=== PATIENT | male | born 1960 | race Caucasian/White ===

== ENCOUNTER 2024-09-27 18:32 | Emergency (ER) | payer OTHER, SELFPAY ==
[2024-09-27 18:38] VITALS: BP 186/84; PULSE 73; RESP 20; TEMP 36.4; O2SAT 98; BMI 22.5
--- NOTE | 2024-09-27 18:44 | ED_ITS ---
HPI - General Adult General Chief complaint: Psychiatric Symptoms Stated complaint: SI Crisis Time Seen by Provider: 09/27/24 19:48 Source: patient Limitations: no limitations History of Present Illness ED Provider: Clara Banda PA-C HPI narrative: Patient is a 63 year old male with complaints of worsening SI x3 weeks. Patient reports feeling anxious and depressed and was initially having plans of cutting his wrists, but for the last few days has been having thoughts of stabbing himself in the stomach. He lives alone and feels safe in his neighborhood, however states he was afraid of himself acting on his own thoughts. He cannot pinpoint any event that preceded these thoughts. He was on an SSRI for his depression in his 40s, but has not been on one since. He has not had a therapist for roughly 12 years, but has been in the process of trying to find one. Patient has a history of alcoholism and was sober until this past Friday when he relapsed. He has had the same partner x20 years who lives in [facility]. His family and friends live nearby and he feels well supported. Patient denies HI, hearing/seeing things that others do not, and history of present illness. Related Data Home Medications ?Medication ?Instructions ?Recorded ?Confirmed No Known Home Meds 09/27/24 09/27/24 Allergies Allergy/AdvReac Type Severity Reaction Status Date / Time No Known Allergies Allergy Verified 09/27/24 18:41 Review of Systems 2 Review of Systems: Yes all other systems are reviewed and are negative Constitutional: Constitutional: Denies chills, Denies fatigue, Denies fever(s), Denies headache(s), Denies weight gain and Denies weight loss Eyes: Eyes: Denies change in vision, Denies irritation and Denies other visual disturbances ENT: Denies dizziness, Denies headache(s) and Denies mouth lesions Cardiovascular: Cardiovascular: Denies Abdominal Distension, Denies chest pain, Denies pedal edema, Denies leg edema, Denies lightheadedness, Denies palpitations and Denies dyspnea Respiratory: Respiratory: Denies cough, Denies dyspnea and Denies wheezing Gastrointestinal: Gastrointestinal: Denies abdominal pain, Denies bloating, Denies constipation, Denies diarrhea, Denies nausea and Denies vomiting Genitourinary: Genitourinary: Denies hematuria, Denies oliguria, Denies urinary frequency and Denies urinary urgency Musculoskeletal: Musculoskeletal: Denies arthralgias, Denies joint swelling, Denies numbness, Denies stiffness and Denies tingling Integumentary/Breasts: Skin/Breast: Denies lesions and Denies rash Neurologic: Denies behavioral changes, Denies confusion, Denies dizziness, Denies headache(s), Denies numbness and Denies tingling Psychiatric: Psychiatric: Reports anxiety, Denies behavioral changes, Denies confusion, Reports depression, Denies panic attacks, Denies visual hallucinations, Denies hallucinations, Denies homicidal ideation and Reports suicidal ideation Endocrine: Endocrine: Denies fatigue and Denies palpitations Allergic/Immunologic: Allergic/Immunologic: Denies wheezing PMFSH Past Medical History Attestation statement: The following information was validated with the patient. Social History Social History Advance Directives: No Advance Directives Information Provided: No Physical Exam ED Vital Signs: Vital Signs - 24 hr 09/27/24 18:38 09/28/24 06:28 Temperature 97.6 F Pulse Rate 73 Respiratory Rate 20 16 Blood Pressure 186/84 H Pulse Oximetry 98 Oxygen Delivery Method Room Air BMI result Body Mass Index 22.5 Const General: cooperative, healthy appearing, comfortable, no acute distress and well developed; No in distress, anxious, confusion, diaphoretic, ill appearing or lethargic Nutritional Appearance: average body habitus Orientation/consciousness: patient oriented x3, No confusion and No lethargic Limitations: no limitations [facility] Head: Yes normal to inspection, Yes normocephalic and Yes atraumatic Eyes General: appearance normal, both eyes and all related structures Visual [place]: normal visual [place] by confrontation Alignment and Position: alignment normal Periorbital: periorbital findings normal Eyelids: Yes eyelids normal Conjunctivae: conjunctivae normal Sclerae: sclerae normal Corneas: corneas normal Pupils: Equal, round and reactive pupils present EOM: EOMs intact bilaterally Neck Neck: Yes normal visual inspection, Yes full ROM and Yes no meningeal signs Resp Effort & Inspection: normal respiratory effort, able to speak in complete sentences, no audible wheezes, no cough, not labored, no nasal flaring, no respiratory distress and no use of accessory muscles Cardio Jugular venous distension: no JVD Rate: regular rate Rhythm: regular rhythm Heart sounds: S1 normal heart sound present and S2 normal heart sound present GI Inspection: Yes normal to inspection and No distended Skin Other: warm and dry, no rash Neuro General: patient oriented x3, gait normal, moves all extremities, no meningeal signs, no focal motor deficits, CN's II-XI intact bilaterally and No confusion Cranial nerves: Yes CN's II-XII intact bilaterally, Yes Equal, round and reactive pupils present, Yes Bilaterally intact EOM present and Yes Nystagmus not present Cognition (Neuro): normal cognition Gait exam (Neuro): Normal gait present Extrem General: Yes normal to inspection and Yes full ROM Psych Other: calm and cooperative Appearance: grossly normal Mental Status: mental status grossly normal Speech and movement: Normal speech and movement present and Clear speech present; No Slurred speech present Affect: normal affect Attitude: cooperative Thought process: Normal thought process present Thought content: Normal thought content present, Suicidality present, no homicidality, no delusions, no hallucinations and Depressive thoughts present Insight: Good insight present (Psych) Judgement: Good judgement present (Psych) Course Course Course Narrative: RME: 63 yold male presents to the ED for relapsing on alcohol and now states SI and plan to cut himself. labs and team conuslt placed. labs and care team and consul placed Medical Decision Making Medical Decision Making MDM Narrative: I Clara Banda PA-C have personally assessed and manage the patient, Liz RÍOS observed and helped to formulate the documentation Patient is a 63 year old male with complaints of worsening SI x3 weeks. Patient reports feeling anxious and depressed and was initially having plans of cutting his wrists, but for the last few days has been having thoughts of stabbing himself in the stomach. He lives alone and feels safe in his neighborhood, however states he was afraid of himself acting on his own thoughts. He cannot pinpoint any event that preceded these thoughts. He was on an SSRI for his depression in his 40s, but has not been on one since. He has not had a therapist for roughly 12 years, but has been in the process of trying to find one. Patient has a history of alcoholism and was sober until this past Friday when he relapsed. He has had the same partner x20 years who lives in [facility]. His family and friends live nearby and he feels well supported. Patient denies HI, hearing/seeing things that others do not, and history of present illness. Patient has a PMH of depression and alcohol abuse. He does not take any medications currently. DDx: SI, HI, EtOH/drug use, decompensated psychiatric illness Plan: As patient is having SI with a plan, as well as recent increase in anxiety and depression, it is possible he is suffering from decompensated psychiatric illness. He has a history of depression which has recently worsened, and he has been untreated for a few years. As he denies thoughts of harming others, he does not have HI. Patient did relapse on alcohol this past Friday, however he denies drug use. He also does not have any symptoms of EtOH or drug withdrawal, such as diaphoresis, tremors, or seizures. Per Clara Banda PA-C Given alcohol abuse history, we will place ciwa scale. We will be ordering screening labs including serum ethanol and U tox, the patient will be referred to the care team. I have independently reviewed the following tests: Labs: No leukocytosis, not anemic, no electrolyte abnormality, ethanol negative, U tox negative Lab Data 09/27/24 18:54 09/27/24 18:54 Labs: Lab Results 09/27/24 09/27/24 Range/Units 18:54 21:42 WBC 9.9 (4.8-10.8) X10*3/uL RBC 3.96 L (4.60-5.80) X10*6/uL Hgb 14.6 (14.0-18.0) g/dl Hct 40.3 L (42.0-52.0) % MCV 101.8 H (80.0-98.0) fL MCH 36.9 H (27.0-33.0) pg MCHC 36.2 H (31.0-36.0) g/dl RDW 13.4 (11.0-16.0) % Plt Count 206 (160-400) X10*3/uL MPV 10.3 (9.4-12.4) fL Immature Gran % (Auto) 0.9 H (0.0-0.4) % Neut % (Auto) 57.9 (45-73) % Lymph % (Auto) 29.0 (20-40) % Mcleod % (Auto) 9.2 (2-11) % Eos % (Auto) 2.3 (0-4) % Baso % (Auto) 0.7 (0-2) % Lymph # (Auto) 2.9 (1.2-4.9) X10*3/uL Mcleod # (Auto) 0.9 (0.1-1.2) X10*3/uL Eos # (Auto) 0.2 (0.0-0.4) X10*3/uL Baso # (Auto) 0.1 (0.0-0.2) X10*3/uL Abs Immat Gran (auto) 0.09 H (0.00-0.03) X10*3/uL Absolute Neuts (auto) 5.7 (2.0-8.3) x10*3/uL Absolute Nucleated RBC 0.000 (0.0-0.012) X10*3/uL Nucleated RBC % (auto) 0.0 (0.0-0.2) /100WBC Sodium 137 (135-145) mmol/L Potassium 3.9 (3.3-5.1) mmol/L Chloride 102 (96-108) mmol/L Carbon Dioxide 24 (22-29) mmol/L Anion Gap 15 (12-20) BUN 7 L (9-16) mg/dL Creatinine 0.87 (0.5-1.4) mg/dL Estim Creat Clear Calc 76.2 Estimated GFR > 60 Random Glucose 92 (60-115) mg/dL Calcium 9.3 (8.4-10.2) mg/dL Total Bilirubin 1.3 H (0.0-1.0) mg/dL AST 22 (5-37) U/L ALT 15 (0-40) U/L Alkaline Phosphatase 50 (39-117) U/L Total Protein 7.0 (6.5-8.0) g/dL Albumin 4.0 (3.5-5.0) g/dL Urine Color Dark Yellow Urine Appearance Clear Urine pH 6.5 (5.0-9.0) Ur Specific [place] 1.015 (1.005-1.025) Urine Protein 30 (1+) H (Neg-Trace) mg/dL Urine Glucose (UA) Negative (Negative) mg/dL Urine Ketones Trace (Negative) mg/dL Urine Blood Trace H (Negative) Urine Nitrite Negative (Negative) Ur Leukocyte Esterase Small (1+) H (Negative) Urine RBC 6-10 H (0-2) /HPF Urine WBC 6-10 H (0-5) /HPF Ur Squamous Epith Cells 0-2 (0-2) /HPF Urine Bacteria None Seen (None Seen) Hyaline Casts 0-2 (0-2) /LPF Urine Opiates Screen Not Detected (Not Detect) Ur Buprenorphine Scrn Not Detected (Not Detect) ng/mL Ur Oxycodone Screen Not Detected (Not Detect) ng/mL Urine Methadone Screen Not Detected (Not Detect) ng/mL Urine Fentanyl Screen Not Detected (Not Detect) Ur Barbiturates Screen Not Detected (Not Detect) Ur Phencyclidine Scrn Not Detected (Not Detect) Ur Amphetamines Screen Not Detected (Not Detect) U Benzodiazepines Scrn Not Detected (Not Detect) Urine Cocaine Screen Not Detected (Not Detect) U Marijuana (THC) Screen Not Detected (Not Detect) Ethyl Alcohol < 10 mg/dL Discharge Plan Discharge Clinical Impression: Suicidal ideation, Alcohol use disorder Patient Disposition: Still a Patient Prescriptions: No Action No Known Home Meds Interventions: [place]-Suicide Risk Severity Scale Last Done: 09/27/24 19:33 Print Language: Cymraes
[2024-09-27 19:01] LABS: Basophils Absolute Auto 0.1 X10*3/uL (0.0-0.2); Basophils Percent Auto 0.7 % (0-2); Eosinophils Absolute Auto 0.2 X10*3/uL (0.0-0.4); Eosinophils Percent Auto 2.3 % (0-4); Hematocrit 40.3 % (42.0-52.0); Hemoglobin 14.6 g/dl (14.0-18.0); Imm Gran Abs Auto 0.09 X10*3/uL (0.00-0.03); Imm Gran Pct Auto 0.9 % (0.0-0.4); Lymphocytes Absolute Auto 2.9 X10*3/uL (1.2-4.9); MANUAL DIFF FLAG NO; Mean Corpuscular HGB Conc 36.2 g/dl (31.0-36.0); Mean Corpuscular Hemoglobin 36.9 pg (27.0-33.0); Mean Corpuscular Volume 101.8 fL (80.0-98.0); Mean Platelet Volume 10.3 fL (9.4-12.4); Monocytes Absolute Auto 0.9 X10*3/uL (0.1-1.2); Monocytes Percent Auto 9.2 % (2-11); Neutrophils Absolute Auto 5.7 x10*3/uL (2.0-8.3); Neutrophils Percent Auto 57.9 % (45-73); Platelet Count 206 X10*3/uL (160-400); Red Blood Count 3.96 X10*6/uL (4.60-5.80); Red Cell Distribution Width 13.4 % (11.0-16.0); White Blood Count 9.9 X10*3/uL (4.8-10.8)
--- NOTE | 2024-09-27 19:23 | PC.NURSE ---
patient search completed by t/w which revealed no injury or evidence of contraband
[2024-09-27 19:24] LABS: Alanine Aminotransferase 15 U/L (0-40); Alkaline Phosphatase 50 U/L (39-117); Anion Gap 15 (12-20); Aspartate Amino Transferase 22 U/L (5-37); Bilirubin Total 1.3 mg/dL (0.0-1.0); Blood Urea Nitrogen 7 mg/dL (9-16); Calcium 9.3 mg/dL (8.4-10.2); Carbon Dioxide 24 mmol/L (22-29); Chloride 102 mmol/L (96-108); Creatinine Clr Calc Pharmacy 76.2; Estimated Glomerular Filt Rate > 60; Ethanol < 10 mg/dL; Glucose Random 92 mg/dL (60-115); Potassium 3.9 mmol/L (3.3-5.1); Sodium 137 mmol/L (135-145)
[2024-09-27 21:49] LABS: Appearance Urine Clear; Color Urine Dark Yellow; Glucose Urine UA Negative (Negative); Leukocyte Esterase Urine Small (1+) (Negative); Nitrite Urine Negative (Negative); PH 6.5 (5.0-9.0); Specific Gravity - Urine 1.015 (1.005-1.025); UMIC TRIGGER UACC YES; Urine Blood Trace (Negative); Urine Ketones Trace mg/dL (Negative); Urine Protein 30 (1+) mg/dL (Neg-Trace)
[2024-09-27 21:54] LABS: Bacteria Urine None Seen (None Seen); Hyaline Casts Urine 0-2 /LPF (0-2); Squamous Epithelial Cell Urine 0-2 /HPF (0-2); UACC Culture Trigger YES
[2024-09-27 21:58] LABS: Amphetamine Screen Urine Not Detected (Not Detect); Barbiturates, Urine Not Detected (Not Detect); Benzodiazepines Screen Urine Not Detected (Not Detect); Buprenorphine Scr Not Detected (Not Detect); Cannabinoid Screen Urine Not Detected (Not Detect); Cocaine Screen Urine Not Detected (Not Detect); Fentanyl, urine Not Detected (Not Detect); Methadone Screen, Urine Not Detected (Not Detect); Opiate Screen Urine Not Detected (Not Detect); Oxycodone Screen Urine Not Detected (Not Detect); Phencyclidine Screen Urine Not Detected (Not Detect)
[2024-09-28 06:28] VITALS: RESP 16
--- NOTE | 2024-09-28 09:03 | PHA.MEDREC ---
Pharmacy Consult ? Medication Reconciliation Pharmacy reviewed med rec done by nursing. Nurse imputed No Known Home Meds and after looking/updating claims no medications popped up in recent history.
--- NOTE | 2024-09-28 10:06 | MHC.CARE ---
Pt accepted to [facility] for 173 today, CARE team to provided Lyft to [facility] this evening. POD RN reports patient is not on any medications currently an is ot prescribed medications.
[2024-09-28 17:00] VITALS: BP 186/84; PULSE 73; RESP 20; TEMP 36.4; O2SAT 98
== END 2024-09-28 17:07 | disposition home or self-care (01) ==
PROVIDERS: Physician Assistant; Emergency Provider Emergency Medicine; PCP Internal Medicine
DX: R45.851 Suicidal ideations (principal); F10.90 Alcohol use, unspecified, uncomplicated; Y90.0 Blood alcohol level of less than 20 mg/100 ml; F32.A Depression, unspecified
CPT/HCPCS: 36415; 80053; 80307; 81001; 85025; 87086; 99285; S9485